=== PATIENT | female | born 1950 | race Caucasian/White ===

== ENCOUNTER 2021-02-24 15:22 | Emergency (ER) | payer MEDICARE, MEDICAID ==
[~2021-02-24] VITALS: Ht 160 cm; Wt 90.0 kg
[~2021-02-24 15:22] MED LIST: NITR100C6 PO; NYSPWD TP; PHEN-824 PO
[2021-02-24 15:48] VITALS: BP 176/89
== END 2021-02-24 16:48 | disposition home or self-care (01) ==
LOC: ER 15:22
DX: M15.4 Erosive (osteo)arthritis (principal); M79.641 Pain in right hand; M25.531 Pain in right wrist; I10 Essential (primary) hypertension; E11.9 Type 2 diabetes mellitus without complications; G89.29 Other chronic pain; Z87.440 Personal history of urinary (tract) infections; Z90.710 Acquired absence of both cervix and uterus; Z88.8 Allergy status to other drugs, medicaments and biological substances; Z79.899 Other long term (current) drug therapy
CPT/HCPCS: 29125; 73110; 99283

== ENCOUNTER 2022-01-10 13:58 | Emergency (ER) | payer MEDICARE, MEDICAID ==
[~2022-01-10] VITALS: Ht 160 cm; Wt 91.0 kg
[2022-01-10 14:35] VITALS: BP 151/88
[2022-01-10] MEDS ORDERED: HYDROcodone/acetaminophen 10/325mg tab PO ONE (15:20)
[2022-01-10] MEDS ORDERED: orphenadrine citrate 60mg/2ml inj. IM ONE (15:20)
[2022-01-10] MEDS ORDERED: ORPH100T2 PO (15:49)
[2022-01-10] MEDS ORDERED: HYDR-3972 PO (15:49)
== END 2022-01-10 16:28 | disposition home or self-care (01) ==
LOC: ER 13:58
DX: M79.604 Pain in right leg (principal); E78.00 Pure hypercholesterolemia, unspecified; I10 Essential (primary) hypertension; G89.29 Other chronic pain; M54.9 Dorsalgia, unspecified; G43.909 Migraine, unspecified, not intractable, without status migrainosus; Z90.49 Acquired absence of other specified parts of digestive tract; Z88.8 Allergy status to other drugs, medicaments and biological substances; Z79.899 Other long term (current) drug therapy; Z88.5 Allergy status to narcotic agent
CPT/HCPCS: 72100; 96372; 99283; J2360